=== PATIENT | male | born 1960 | race African-American/Black ===

== ENCOUNTER 2017-08-28 12:48 | Emergency (ER) | payer MEDICAID, OTHER ==
[~2017-08-28] VITALS: Ht 172.7 cm; Wt 131.0 kg
[~2017-08-28 12:48] MED LIST: AMIODARONE HCL 200 MG PO; METO25TA6 PO; NIFE60TA64 PO; OMEP20CA10 PO; WARF5TAB73 PO; WARF7.5T22 PO
[2017-08-28 14:16] LABS: BASOPHILS % 0.6 % (0.0-2.0); EOSINOPHILS % 1.9 % (0.0-5.0); HEMATOCRIT. 47.8 % (42.0-52.0); HEMOGLOBIN. 15.9 g/dL (14.0-18.0); LYMPHOCYTES % 30.7 % (20.0-50.0); MEAN CORPUSCULAR HEMOGLOBIN 29.3 pg (28.0-32.0); MEAN CORPUSCULAR VOLUME 87.9 fL (80.0-94.0); MEAN PLATELET VOLUME 8.7 fl (7.4-10.4); MONOCYTES % 8.6 % (2.0-8.0); NEUTROPHILS % 58.2 % (40.0-76.0); PLATELET 197 x1000/uL (130-400); RED BLOOD CELL COUNT 5.44 mill/uL (4.7-6.1); RED CELL DISTRIBUTION WIDTH 14.3 % (11.6-14.6)
[2017-08-28 14:25] LABS: CARBON DIOXIDE 29 mEq/L (21-32); CHLORIDE 106 mEq/L (98-107); CREATINE KINASE 339 IU/L (39-308); TROPONIN I < 0.02 ng/mL (0.00-0.04)
[2017-08-28 14:27] LABS: PARTIAL THROMBOPLASTIN TIME 26.5 sec (23.4-31.0); PROTHROMBIN TIME 10.7 sec (9.4-11.6)
[2017-08-28 14:30] LABS: CREATINE KINASE MB FRACTION 1.3 ng/mL (0.5-3.6)
[2017-08-28] MEDS ORDERED: MORPHINE SULFATE 2 MG/ML CPJ (NOT FOR IM USE) IV ONE (16:15)
[2017-08-28] MEDS: MORPHINE SULFATE 4 MG/ML CPJ (NOT FOR IM USE) IV NR ×2 (16:43→16:44)
[2017-08-28 16:49] LABS: CLARITY URINE CLEAR (CLEAR); COLOR URINE YELLOW (YELLOW); KETONES URINE TRACE (NEGATIVE); LEUKOCYTE ESTERASE URINE NEGATIVE (NEGATIVE); NITRITE URINE NEGATIVE (NEGATIVE); OCCULT BLOOD URINE NEGATIVE (NEGATIVE); PROTEIN URINE NEGATIVE (NEGATIVE); SPECIFIC GRAVITY URINE 1.022 (1.005-1.030); UROBILINOGEN URINE 0.2 E.U./dL (0.2-1.0)
[2017-08-28] MEDS ORDERED: IOHEXOL-300 100 ML BOTTLE ONE (17:15)
[2017-08-28] MEDS ORDERED: FENTANYL CITRATE/PF 50MCG/ML 2ML VIAL IV ONE (18:15)
[2017-08-28] MEDS ORDERED: ONDANSETRON HCL 4MG/2ML VIAL IV ONE (18:15)
[2017-08-28] MEDS ORDERED: MORPHINE SULFATE 4 MG/ML CPJ (NOT FOR IM USE) IV ONE (20:45)
[2017-08-28] MEDS ORDERED: METOPROLOL TARTRATE 5MG/5ML VIAL IV ONE (22:45)
[2017-08-29] MEDS ORDERED: MORPHINE SULFATE 4 MG/ML CPJ (NOT FOR IM USE) IV ONE ×2 (01:30→05:45)
[2017-08-29 05:44] VITALS: BP 124/86
[2017-08-29] MEDS ORDERED: ONDANSETRON HCL 4MG/2ML VIAL IV ONE (05:45)
== END 2017-08-29 06:10 | disposition short-term general hospital (02) ==
LOC: ER 13:01
DX: I71.01 Dissection of thoracic aorta (principal); I11.0 Hypertensive heart disease with heart failure; I50.9 Heart failure, unspecified; F12.10 Cannabis abuse, uncomplicated; Z79.01 Long term (current) use of anticoagulants; Z86.73 Personal history of transient ischemic attack (TIA), and cerebral infarction without residual deficits; Z95.828 Presence of other vascular implants and grafts
CPT/HCPCS: 36415; 71270; 74178; 80053; 81003; 82550; 82553; 83690; 84484; 85025; 85610; 85730; 93005; 96374; 96375; 96376; 99291; J2270; J2405; J3010; J3490; Q9967; Z7610

== ENCOUNTER 2025-05-05 19:22 | Inpatient (IN) | payer MEDICAID, MEDICARE ==
[2025-05-05] VITALS (10 sets, daily range): BP systolic 147–186; BP diastolic 94–153; PULSE 69–95; RESP 18–29; TEMP 37.4–37.4744; O2SAT 98–100
[~2025-05-05] VITALS: Ht 172.7 cm; Wt 81.2 kg
[~2025-05-05 19:22] MED LIST changes: -OMEP20CA10 PO; +OMEP20CA14 PO; +WARF-53 PO; -WARF5TAB73 PO
[2025-05-05] MEDS: IOHEXOL-350 100 ML BOTTLE ONE (19:36)
[2025-05-05] MEDS: PROPOFOL 10MG/ML 100ML 100 ML IV SCH (19:45)
[2025-05-05] MEDS ORDERED: FENTANYL 2500MCG/250ML PMX 250 ML IV SCH (19:45)
[2025-05-05] MEDS: ETOMIDATE 2MG/ML 10ML VIAL IV ONE (19:47)
[2025-05-05] MEDS: ROCURONIUM BROMIDE 10MG/ML VIAL 5ML IV ONE (19:47)
[2025-05-05] MEDS: LORAZEPAM 2MG/ML UD SYRINGE ONE (19:55)
[2025-05-05] MEDS: LORAZEPAM 2MG/ML UD SYRINGE IV SCH (20:00)
[2025-05-05] MEDS: LEVETIRACETAM 1000MG PREMIX 100 ML IV ONE ×3 (20:00→21:36)
[2025-05-05] MEDS: FENTANYL 2500MCG/250ML PMX 250 ML IV PRN (20:25)
[2025-05-05 20:32] LABS: BASOPHILS % 0.9 % (0.0-2.0); EOSINOPHILS % 1.2 % (0.0-5.0); HEMATOCRIT. 38.9 % (42.0-52.0); HEMOGLOBIN. 12.7 g/dL (14.0-18.0); LYMPHOCYTES % 21.8 % (20.0-50.0); MEAN PLATELET VOLUME 8.2 fl (7.4-10.4); MONOCYTES % 7.0 % (2.0-8.0); NEUTROPHILS % 69.1 % (40.0-76.0); PLATELET 190 x1000/uL (130-400); RED BLOOD CELL COUNT 4.48 mill/uL (4.7-6.1); RED CELL DISTRIBUTION WIDTH 13.4 % (11.6-14.6)
[2025-05-05 20:37] LABS: ADD RBC MORPHOLOGY YES
[2025-05-05 20:45] LABS: INR 1.1
[2025-05-05 20:48] LABS: CREATININE 1.0 mg/dL (0.6-1.3); UREA NITROGEN BLOOD 11 mg/dL (9-23)
[2025-05-05 20:49] LABS: ETHANOL BLOOD < 10 mg/dL (<10)
[2025-05-05 20:50] LABS: ASPARTATE AMINOTRANSFERASE 18 IU/L (<34); BILIRUBIN DIRECT 0.1 mg/dL (<=3.0); BILIRUBIN TOTAL 0.4 mg/dL (0.1-1.0); PLATELET ESTIMATE NORMAL
[2025-05-05 20:51] LABS: PROTEIN TOTAL 6.3 g/dL (6.0-8.3)
[2025-05-05] MEDS: SODIUM CHLORIDE 0.9% (SEPSIS BOLUS) IV ONE (20:56)
[2025-05-05] MEDS: PIPERACILLIN/TAZO 3.375G/50ML 50 ML IV ONE (21:10)
[2025-05-05] MEDS: VANCOMYCIN 1G PREMIX 200 ML IV ONE (21:37)
[2025-05-05 21:39] LABS: CLARITY URINE CLEAR (CLEAR); COLOR URINE YELLOW (YELLOW); GLUCOSE URINE NEGATIVE (NEGATIVE); KETONES URINE NEGATIVE (NEGATIVE); LEUKOCYTE ESTERASE URINE NEGATIVE (NEGATIVE); NITRITE URINE NEGATIVE (NEGATIVE); OCCULT BLOOD URINE 2+ (NEGATIVE); PH URINE 5.0 (4.5-8.0); PROTEIN URINE 3+ (NEGATIVE); SPECIFIC GRAVITY URINE 1.073 (1.005-1.030); UROBILINOGEN URINE 1.0 E.U./dL (0.2-1.0)
[2025-05-05 21:43] LABS: BG BASE EXCESS -2.4 mmol/L (-2.0-3.0); BG CARBOXYHEMOGLOBIN 0.3 % (0.5-1.5); BG DEOXYHEMOGLOBIN 0.0 % (0.0-5.0); BG FRACTION INSPIRED OXYGEN 100; BG HCO3 ACT 22.4 mmol/L (21.0-28.0); BG METHEMOGLOBIN 0.3 % (0.5-1.5); BG OXYGEN SATURATION 100.0 % (94.0-98.0); BG OXYHEMOGLOBIN 99.4 % (94.0-98.0); BG PCO2 38.9 mmHg (35.0-48.0); BG PEEP (cmH2O) 5.0 cmH2O; BG PH 7.378 (7.350-7.450); BG PO2 397.8 mmHg (83.0-108.0); BG SAMPLE SITE RIGHT BRACHIAL; BG TIDAL VOLUME(mL) 500.0 mL; BG TOTAL HEMOGLOBIN 17.1 g/dL (13.5-17.5); BG VENT MODE VENT - AC; BG VENT RATE 18.0 set
[2025-05-05 21:46] LABS: BACTERIA URINE TRACE; SQUAMOUS EPITHELIAL CELL URINE NONE SEEN /lpf (RARE/1+); WBC URINE 0-2 /hpf (0-2)
[2025-05-05 21:47] LABS: *AMPHETAMINES SCREEN URINE NEGATIVE (NEGATIVE); *BENZODIAZEPINES SCREEN URINE NEGATIVE (NEGATIVE)
[2025-05-05 21:48] LABS: *BARBITURATES SCREEN URINE NEGATIVE (NEGATIVE); *COCAINE SCREEN URINE NEGATIVE (NEGATIVE); CANNABINOID URINE SCREEN NEGATIVE (NEGATIVE); ECSTASY MDMA SCREEN URINE NEGATIVE (NEGATIVE); METHADONE URINE SCREEN NEGATIVE (NEGATIVE); OPIATES URINE SCREEN NEGATIVE (NEGATIVE); PHENCYCLIDINE URINE SCREEN NEGATIVE (NEGATIVE)
[2025-05-05] MEDS ORDERED: FENTANYL CITRATE/PF 2,500 MCG in SODIUM CHLORIDE 0.9% 200 ML IV PRN (23:00)
[2025-05-06] VITALS (85 sets, daily range): BP systolic 101–167; BP diastolic 67–120; PULSE 61–83; RESP 14–28; TEMP 36.8–37.1; O2SAT 96–100
[2025-05-06] MEDS ORDERED: GUAIFENESIN 200MG/10ML SUGAR FREE UDC PO PRN
[2025-05-06] MEDS ORDERED: ONDANSETRON HCL 4MG/2ML INJ IV PRN
[2025-05-06] MEDS ORDERED: IPRATROPIUM/ALBUTEROL 0.5-3(2.5)MG/3ML NEB HHN PRN
[2025-05-06] MEDS ORDERED: ACETAMINOPHEN 325MG TABLET NG PRN
[2025-05-06] MEDS ORDERED: DOCUSATE SODIUM 100MG CAPSULE PO PRN
[2025-05-06] MEDS: ENOXAPARIN 100MG/ML SYR SUBCUT SCH (02:24)
[2025-05-06] MEDS: PROPOFOL 10MG/ML 100ML 100 ML IV PRN (04:12)
[2025-05-06 05:07] LABS: HEMATOCRIT. 35.7 % (42.0-52.0); HEMOGLOBIN. 12.1 g/dL (14.0-18.0); MEAN PLATELET VOLUME 7.8 fl (7.4-10.4); PLATELET 192 x1000/uL (130-400); RED BLOOD CELL COUNT 4.21 mill/uL (4.7-6.1); RED CELL DISTRIBUTION WIDTH 13.3 % (11.6-14.6)
[2025-05-06 05:09] LABS: CREATININE 1.0 mg/dL (0.6-1.3)
[2025-05-06 05:10] LABS: LDL CHOLESTEROL 103 mg/dL (5-100); TRIGLYCERIDE 68 mg/dL (0-150); UREA NITROGEN BLOOD 7 mg/dL (9-23)
[2025-05-06 05:24] LABS: FOLIC ACID (FOLATE) SERUM 9.09 ng/mL (>5.38); VITAMIN B12 SERUM 530 pg/mL (211-911)
[2025-05-06 07:04] LABS: EOSINOPHILS % MANUAL 1.0 % (0.0-5.0); LYMPHOCYTES % MANUAL 23.0 % (20.0-50.0); MONOCYTES % MANUAL 16.0 % (2.0-8.0); NEUTROPHILS % MANUAL 60.0 % (45.0-75.0); PLATELET ESTIMATE NORMAL
[2025-05-06 07:11] LABS: INFLUENZA TYPE A Presumptive Negative (Pres. Neg.); INFLUENZA TYPE B Presumptive Negative (Pres. Neg.); RESPIRATORY SYNCYTIAL VIRUS Not Detected (Not Detectd)
[2025-05-06 08:11] LABS: BG BASE EXCESS -0.1 mmol/L (-2.0-3.0); BG CARBOXYHEMOGLOBIN 0.7 % (0.5-1.5); BG DEOXYHEMOGLOBIN 0.5 % (0.0-5.0); BG FRACTION INSPIRED OXYGEN 50; BG HCO3 ACT 23.8 mmol/L (21.0-28.0); BG METHEMOGLOBIN 0.1 % (0.5-1.5); BG OXYGEN SATURATION 99.5 % (94.0-98.0); BG OXYHEMOGLOBIN 98.7 % (94.0-98.0); BG PCO2 36.3 mmHg (35.0-48.0); BG PEEP (cmH2O) 5.0 cmH2O; BG PH 7.434 (7.350-7.450); BG PO2 208.1 mmHg (83.0-108.0); BG SAMPLE SITE RIGHT RADIAL; BG TIDAL VOLUME(mL) 500.0 mL; BG TOTAL HEMOGLOBIN 13.2 g/dL (13.5-17.5); BG TOTAL RESPIRATORY RATE 20 b/min; BG VENT MODE VENT - AC; BG VENT RATE 18.0 set
[2025-05-06] MEDS: IPRATROPIUM/ALBUTEROL 0.5-3(2.5)MG/3ML NEB HHN SCH ×2 (08:15→14:52)
[2025-05-06] MEDS ORDERED: LEVETIRACETAM 1,500MG in NACL 100ML PREMIX IV SCH (09:00)
[2025-05-06] MEDS ORDERED: ENOXAPARIN 30MG/0.3ML SYR SUBCUT SCH (09:00)
[2025-05-06] MEDS: KCL 20MEQ/100ML PREMIX 100 ML IV SCH (09:08)
[2025-05-06] MEDS: PANTOPRAZOLE SODIUM 40 MG/VIAL IV SCH (09:09)
[2025-05-06] MEDS: LEVETIRACETAM 1500MG PREMIX 100 ML IV SCH (09:16)
[2025-05-06] MEDS ORDERED: DEXTROSE 50% WATER 50ML SYRINGE IV PRN (09:45)
[2025-05-06] MEDS: DEXT 5%/0.9% NACL 1,000 ML IV SCH (10:29)
[2025-05-06] MEDS: PIPERACILLIN/TAZO 3.375G/50ML 50 ML IV SCH (10:29)
[2025-05-06] MEDS: MIDAZOLAM 100MG/100ML PMX 100 ML IV PRN (10:34)
[2025-05-06] MEDS: ASPIRIN 81MG EC TABLET PO SCH (12:42)
[2025-05-07] VITALS (86 sets, daily range): BP systolic 101–160; BP diastolic 60–99; PULSE 56–86; RESP 16–27; TEMP 36.8–37.9; O2SAT 96–100
[2025-05-07 01:10] LABS: TROPONIN I HIGH SENSITIVITY 219 ng/L (3.0-53)
[2025-05-07] MEDS: PROPOFOL 10MG/ML 100ML 100 ML IV PRN (02:58)
[2025-05-07 05:29] LABS: CREATININE 0.9 mg/dL (0.6-1.3)
[2025-05-07 05:30] LABS: UREA NITROGEN BLOOD < 5 mg/dL (9-23)
[2025-05-07 05:37] LABS: HEMATOCRIT. 35.9 % (42.0-52.0); HEMOGLOBIN. 11.9 g/dL (14.0-18.0); MEAN PLATELET VOLUME 8.2 fl (7.4-10.4); PLATELET 178 x1000/uL (130-400); RED BLOOD CELL COUNT 4.14 mill/uL (4.7-6.1); RED CELL DISTRIBUTION WIDTH 13.5 % (11.6-14.6); TROPONIN I HIGH SENSITIVITY 196 ng/L (3.0-53)
[2025-05-07] MEDS: DEXTROSE 50% WATER 50ML SYRINGE IV PRN (06:31)
[2025-05-07 08:31] LABS: BG BASE EXCESS -3.9 mmol/L (-2.0-3.0); BG CARBOXYHEMOGLOBIN 0.7 % (0.5-1.5); BG DEOXYHEMOGLOBIN 1.4 % (0.0-5.0); BG FRACTION INSPIRED OXYGEN 40; BG HCO3 ACT 20.1 mmol/L (21.0-28.0); BG METHEMOGLOBIN 0.1 % (0.5-1.5); BG OXYGEN SATURATION 98.6 % (94.0-98.0); BG OXYHEMOGLOBIN 97.8 % (94.0-98.0); BG PCO2 33.1 mmHg (35.0-48.0); BG PEEP (cmH2O) 5.0 cmH2O; BG PH 7.401 (7.350-7.450); BG PO2 126.0 mmHg (83.0-108.0); BG SAMPLE SITE RIGHT RADIAL; BG TIDAL VOLUME(mL) 500.0 mL; BG TOTAL HEMOGLOBIN 12.7 g/dL (13.5-17.5); BG VENT MODE VENT - AC; BG VENT RATE 18.0 set
[2025-05-07 10:46] LABS: BAND% 8.0 % (1.0-6.0); EOSINOPHILS % MANUAL 2.0 % (0.0-5.0); LYMPHOCYTES % MANUAL 20.0 % (20.0-50.0); MONOCYTES % MANUAL 17.0 % (2.0-8.0); NEUTROPHILS % MANUAL 53.0 % (45.0-75.0); PLATELET ESTIMATE NORMAL
[2025-05-07] MEDS: LORAZEPAM 2MG/ML UD SYRINGE IV PRN (10:50)
[2025-05-07] MEDS: LEVETIRACETAM 1000MG PREMIX 100 ML IV SCH ×2 (20:55)
[2025-05-07] MEDS ORDERED: LEVETIRACETAM 1,500MG in NACL 100ML PREMIX IV SCH (21:00)
[2025-05-07] MEDS ORDERED: DEXTROSE 50% WATER 50ML SYRINGE IV PRN (21:45)
[2025-05-07] MEDS: INSULIN LISPRO 100 UNITS/ML SUBCUT SCH (22:00)
[2025-05-07] MEDS: BLOOD SUGAR DIAGNOSTIC STRIP TEST SCH (22:00)
[2025-05-07] MEDS: AMLODIPINE 5MG TABLET PO NR (22:09)
[2025-05-07] MEDS: ACETAMINOPHEN 325MG TABLET NG PRN (22:39)
[2025-05-08] VITALS (91 sets, daily range): BP systolic 95–163; BP diastolic 48–107; PULSE 55–88; RESP 10–30; TEMP 36.9–38.6; O2SAT 97–100
[2025-05-08 05:48] LABS: PLATELET 207 x1000/uL (130-400); RED BLOOD CELL COUNT 4.53 mill/uL (4.7-6.1); RED CELL DISTRIBUTION WIDTH 13.3 % (11.6-14.6)
[2025-05-08] MEDS: FENTANYL 2500MCG/250ML PMX 250 ML IV PRN (05:55)
[2025-05-08 06:11] LABS: CREATININE 0.8 mg/dL (0.6-1.3)
[2025-05-08 06:12] LABS: UREA NITROGEN BLOOD 6 mg/dL (9-23)
[2025-05-08 06:14] LABS: PHOSPHORUS 3.0 mg/dL (2.5-4.9)
[2025-05-08 09:00] LABS: BG BASE EXCESS -1.6 mmol/L (-2.0-3.0); BG CARBOXYHEMOGLOBIN 0.2 % (0.5-1.5); BG DEOXYHEMOGLOBIN 3.4 % (0.0-5.0); BG FRACTION INSPIRED OXYGEN 30; BG HCO3 ACT 21.7 mmol/L (21.0-28.0); BG METHEMOGLOBIN 0.3 % (0.5-1.5); BG OXYGEN SATURATION 96.6 % (94.0-98.0); BG OXYHEMOGLOBIN 96.1 % (94.0-98.0); BG PCO2 32.2 mmHg (35.0-48.0); BG PEEP (cmH2O) 5.0 cmH2O; BG PH 7.446 (7.350-7.450); BG PO2 83.5 mmHg (83.0-108.0); BG SAMPLE SITE RIGHT RADIAL; BG TIDAL VOLUME(mL) 500.0 mL; BG TOTAL HEMOGLOBIN 12.2 g/dL (13.5-17.5); BG VENT MODE VENT - AC; BG VENT RATE 18.0 set
[2025-05-08] MEDS: AMLODIPINE 5MG TABLET PO SCH (09:36)
[2025-05-08] MEDS: PROPOFOL 10MG/ML 100ML 100 ML IV PRN (14:36)
[2025-05-09] VITALS (97 sets, daily range): BP systolic 93–182; BP diastolic 54–101; PULSE 64–102; RESP 14–39; TEMP 37.5–38.7; O2SAT 93–100
[2025-05-09] MEDS: MAGNESIUM/ALUMINUM HYDROXIDE/SIMETHICONE 30ML UDC PO PRN (02:54)
[2025-05-09] MEDS: HYDRALAZINE 20MG/ML VIAL IV PRN (06:04)
[2025-05-09 06:42] LABS: BASOPHILS % 0.3 % (0.0-2.0); EOSINOPHILS % 1.0 % (0.0-5.0); HEMATOCRIT. 35.4 % (42.0-52.0); HEMOGLOBIN. 12.0 g/dL (14.0-18.0); LYMPHOCYTES % 15.3 % (20.0-50.0); MEAN PLATELET VOLUME 8.2 fl (7.4-10.4); MONOCYTES % 6.8 % (2.0-8.0); NEUTROPHILS % 76.6 % (40.0-76.0); PLATELET 227 x1000/uL (130-400); RED BLOOD CELL COUNT 4.17 mill/uL (4.7-6.1); RED CELL DISTRIBUTION WIDTH 13.2 % (11.6-14.6)
[2025-05-09 06:56] LABS: CREATININE 0.7 mg/dL (0.6-1.3); UREA NITROGEN BLOOD < 5 mg/dL (9-23)
[2025-05-09 09:33] LABS: BG BASE EXCESS -4.3 mmol/L (-2.0-3.0); BG CARBOXYHEMOGLOBIN 0.1 % (0.5-1.5); BG DEOXYHEMOGLOBIN 1.6 % (0.0-5.0); BG FRACTION INSPIRED OXYGEN 30; BG HCO3 ACT 18.2 mmol/L (21.0-28.0); BG METHEMOGLOBIN 0.3 % (0.5-1.5); BG OXYGEN SATURATION 98.4 % (94.0-98.0); BG OXYHEMOGLOBIN 98.0 % (94.0-98.0); BG PCO2 26.2 mmHg (35.0-48.0); BG PEEP (cmH2O) 5.0 cmH2O; BG PH 7.459 (7.350-7.450); BG PO2 116.3 mmHg (83.0-108.0); BG SAMPLE SITE RIGHT RADIAL; BG TIDAL VOLUME(mL) 500.0 mL; BG TOTAL HEMOGLOBIN 11.9 g/dL (13.5-17.5); BG VENT MODE VENT - AC; BG VENT RATE 18.0 set
[2025-05-10] VITALS (105 sets, daily range): BP systolic 102–169; BP diastolic 59–124; PULSE 69–103; RESP 15–33; TEMP 37–38.1; O2SAT 78–100
[2025-05-10 07:17] LABS: BASOPHILS % 0.5 % (0.0-2.0); EOSINOPHILS % 1.3 % (0.0-5.0); HEMATOCRIT. 37.2 % (42.0-52.0); HEMOGLOBIN. 12.1 g/dL (14.0-18.0); LYMPHOCYTES % 17.6 % (20.0-50.0); MONOCYTES % 8.4 % (2.0-8.0); NEUTROPHILS % 72.2 % (40.0-76.0); RED BLOOD CELL COUNT 4.23 mill/uL (4.7-6.1); RED CELL DISTRIBUTION WIDTH 13.5 % (11.6-14.6)
[2025-05-10 07:33] LABS: CREATININE 0.7 mg/dL (0.6-1.3); UREA NITROGEN BLOOD 5 mg/dL (9-23)
[2025-05-10] MEDS: POLYETHYLENE GLYCOL 3350 (17GM) 1 DOSE PACK PO SCH (08:13)
[2025-05-10 09:01] LABS: BG BASE EXCESS 0.9 mmol/L (-2.0-3.0); BG CARBOXYHEMOGLOBIN 0.7 % (0.5-1.5); BG DEOXYHEMOGLOBIN 2.7 % (0.0-5.0); BG FRACTION INSPIRED OXYGEN 30; BG HCO3 ACT 24.9 mmol/L (21.0-28.0); BG METHEMOGLOBIN 0.1 % (0.5-1.5); BG OXYGEN SATURATION 97.3 % (94.0-98.0); BG OXYHEMOGLOBIN 96.5 % (94.0-98.0); BG PCO2 37.6 mmHg (35.0-48.0); BG PEEP (cmH2O) 5.0 cmH2O; BG PH 7.439 (7.350-7.450); BG PO2 93.5 mmHg (83.0-108.0); BG SAMPLE SITE RIGHT RADIAL; BG TIDAL VOLUME(mL) 500.0 mL; BG TOTAL HEMOGLOBIN 12.9 g/dL (13.5-17.5); BG VENT MODE VENT - AC; BG VENT RATE 16.0 set
[2025-05-10 10:18] LABS: PLATELET 214 x1000/uL (130-400)
[2025-05-10] MEDS ORDERED: SODIUM CHLORIDE 0.9% 1,000 ML IV SCH (14:00)
[2025-05-10] MEDS: SODIUM CHLORIDE 0.45% 1,000 ML IV ONE (14:48)
[2025-05-10] MEDS ORDERED: HYDRALAZINE 20MG/ML VIAL IV PRN (19:15)
[2025-05-11] VITALS (90 sets, daily range): BP systolic 105–178; BP diastolic 60–147; PULSE 69–102; RESP 10–44; TEMP 37.7–38.7; O2SAT 92–100
[2025-05-11 06:36] LABS: CREATININE 0.6 mg/dL (0.6-1.3); UREA NITROGEN BLOOD 6 mg/dL (9-23)
[2025-05-11 06:52] LABS: BASOPHILS % 0.6 % (0.0-2.0); EOSINOPHILS % 1.8 % (0.0-5.0); HEMATOCRIT. 35.4 % (42.0-52.0); HEMOGLOBIN. 11.7 g/dL (14.0-18.0); LYMPHOCYTES % 20.2 % (20.0-50.0); MEAN PLATELET VOLUME 8.3 fl (7.4-10.4); MONOCYTES % 9.1 % (2.0-8.0); NEUTROPHILS % 68.3 % (40.0-76.0); PLATELET 217 x1000/uL (130-400); RED BLOOD CELL COUNT 4.05 mill/uL (4.7-6.1); RED CELL DISTRIBUTION WIDTH 13.2 % (11.6-14.6)
[2025-05-11] MEDS: NA PHOS,M-B/NA PHOS,DI-BA ENEMA 118ML PR NR (08:18)
[2025-05-11] MEDS: AMLODIPINE 5MG TABLET PO SCH (08:19)
[2025-05-11] MEDS: FUROSEMIDE 40MG/4ML VIAL IVP NR (09:35)
[2025-05-11 10:07] LABS: BG BASE EXCESS 2.8 mmol/L (-2.0-3.0); BG CARBOXYHEMOGLOBIN 0.2 % (0.5-1.5); BG DEOXYHEMOGLOBIN 2.5 % (0.0-5.0); BG FRACTION INSPIRED OXYGEN 30; BG HCO3 ACT 26.4 mmol/L (21.0-28.0); BG METHEMOGLOBIN 0.3 % (0.5-1.5); BG OXYGEN SATURATION 97.5 % (94.0-98.0); BG OXYHEMOGLOBIN 97.0 % (94.0-98.0); BG PCO2 37.0 mmHg (35.0-48.0); BG PEEP (cmH2O) 5.0 cmH2O; BG PH 7.471 (7.350-7.450); BG PO2 90.0 mmHg (83.0-108.0); BG SAMPLE SITE RIGHT RADIAL; BG TOTAL HEMOGLOBIN 11.5 g/dL (13.5-17.5); BG VENT MODE VENT - CPAP
[2025-05-11] MEDS: LEVOFLOXACIN 750MG PREMIX 150 ML IV SCH (11:57)
[2025-05-11] MEDS: IPRATROPIUM/ALBUTEROL 0.5-3(2.5)MG/3ML NEB HHN SCH (11:57)
[2025-05-11] MEDS ORDERED: HALOPERIDOL LACTATE 5MG/ML VIAL IM PRN (12:45)
[2025-05-11] MEDS ORDERED: CEFEPIME 1,000 MG in DEXT 5% WATER 100 ML IV SCH (14:00)
[2025-05-11 15:27] LABS: BG BASE EXCESS 2.2 mmol/L (-2.0-3.0); BG CARBOXYHEMOGLOBIN 0.5 % (0.5-1.5); BG DEOXYHEMOGLOBIN 3.4 % (0.0-5.0); BG FRACTION INSPIRED OXYGEN 30; BG HCO3 ACT 24.3 mmol/L (21.0-28.0); BG METHEMOGLOBIN 0.3 % (0.5-1.5); BG OXYGEN SATURATION 96.6 % (94.0-98.0); BG OXYHEMOGLOBIN 95.8 % (94.0-98.0); BG PCO2 30.7 mmHg (35.0-48.0); BG PEEP (cmH2O) 5.0 cmH2O; BG PH 7.517 (7.350-7.450); BG PO2 79.8 mmHg (83.0-108.0); BG SAMPLE SITE RIGHT RADIAL; BG TOTAL HEMOGLOBIN 13.6 g/dL (13.5-17.5); BG VENT MODE VENT - CPAP
[2025-05-11] MEDS: RACEPINEPHRINE 2.25% 0.5ML NEB VIAL HHN SCH (15:57)
[2025-05-11] MEDS: CEFEPIME 2GM/100ML 100 ML IV SCH (15:58)
[2025-05-11] MEDS: BISACODYL 10MG SUPP PR SCH (15:59)
[2025-05-11] MEDS: POLYETHYLENE GLYCOL 3350 (17GM) 1 DOSE PACK PO SCH (15:59)
[2025-05-11] MEDS ORDERED: METRONIDAZOLE 500MG TABLET PO SCH (18:00)
[2025-05-11 18:31] LABS: CLARITY URINE CLEAR (CLEAR); COLOR URINE YELLOW (YELLOW); GLUCOSE URINE NEGATIVE (NEGATIVE); KETONES URINE NEGATIVE (NEGATIVE); LEUKOCYTE ESTERASE URINE NEGATIVE (NEGATIVE); NITRITE URINE NEGATIVE (NEGATIVE); OCCULT BLOOD URINE 3+ (NEGATIVE); PH URINE 6.5 (4.5-8.0); PROTEIN URINE 3+ (NEGATIVE); SPECIFIC GRAVITY URINE 1.017 (1.005-1.030); UROBILINOGEN URINE 1.0 E.U./dL (0.2-1.0)
[2025-05-11] MEDS: METRONIDAZOLE 500 MG PREMIX 100 ML IV SCH (18:33)
[2025-05-11] MEDS: ACETAMINOPHEN 650MG SUPP PR SCH (18:34)
[2025-05-11 18:52] LABS: BACTERIA URINE NONE SEEN; HYALINE CASTS URINE 0-5 /lpf; SQUAMOUS EPITHELIAL CELL URINE RARE /lpf (RARE/1+); WBC URINE 0-2 /hpf (0-2)
[2025-05-11] MEDS: CLONIDINE HCL 0.1MG/24HR PATCH TD SCH (19:45)
[2025-05-11 21:06] LABS: TROPONIN I HIGH SENSITIVITY 47 ng/L (3.0-53)
[2025-05-12] VITALS (58 sets, daily range): BP systolic 108–162; BP diastolic 53–137; PULSE 70–92; RESP 14–42; TEMP 37.2–37.4; O2SAT 86–99
[2025-05-12 06:04] LABS: BASOPHILS % 0.9 % (0.0-2.0); EOSINOPHILS % 1.4 % (0.0-5.0); HEMATOCRIT. 33.0 % (42.0-52.0); HEMOGLOBIN. 11.1 g/dL (14.0-18.0); LYMPHOCYTES % 19.3 % (20.0-50.0); MONOCYTES % 7.8 % (2.0-8.0); NEUTROPHILS % 70.6 % (40.0-76.0); RED BLOOD CELL COUNT 3.83 mill/uL (4.7-6.1); RED CELL DISTRIBUTION WIDTH 12.9 % (11.6-14.6)
[2025-05-12 06:31] LABS: CREATININE 0.6 mg/dL (0.6-1.3); UREA NITROGEN BLOOD 7 mg/dL (9-23)
[2025-05-12 06:33] LABS: ASPARTATE AMINOTRANSFERASE 25 IU/L (<34); BILIRUBIN DIRECT 0.3 mg/dL (<=3.0)
[2025-05-12 06:34] LABS: BILIRUBIN TOTAL 0.6 mg/dL (0.1-1.0); PROTEIN TOTAL 5.9 g/dL (6.0-8.3)
[2025-05-12] MEDS: ENOXAPARIN 80MG/0.8ML SYR SUBCUT SCH (08:24)
[2025-05-12] MEDS: DEXT 5%/0.9% NACL 250 ML IV ONE (08:36)
[2025-05-12 08:59] LABS: PLATELET 218 x1000/uL (130-400)
[2025-05-12] MEDS: POTASSIUM CHLORIDE 20MEQ/PACKET PO NR (13:55)
[2025-05-13] VITALS (45 sets, daily range): BP systolic 95–161; BP diastolic 48–126; PULSE 75–137; RESP 9–41; TEMP 36.7–37.1; O2SAT 87–98
[2025-05-13 07:23] LABS: BASOPHILS % 0.6 % (0.0-2.0); EOSINOPHILS % 2.3 % (0.0-5.0); HEMATOCRIT. 37.3 % (42.0-52.0); HEMOGLOBIN. 12.5 g/dL (14.0-18.0); LYMPHOCYTES % 21.6 % (20.0-50.0); MEAN PLATELET VOLUME 8.1 fl (7.4-10.4); MONOCYTES % 11.7 % (2.0-8.0); NEUTROPHILS % 63.8 % (40.0-76.0); PLATELET 245 x1000/uL (130-400); RED BLOOD CELL COUNT 4.36 mill/uL (4.7-6.1); RED CELL DISTRIBUTION WIDTH 13.3 % (11.6-14.6)
[2025-05-13 08:12] LABS: CREATININE 0.7 mg/dL (0.6-1.3); UREA NITROGEN BLOOD 7 mg/dL (9-23)
[2025-05-13] MEDS: KCL 20MEQ/100ML PREMIX 100 ML IV SCH (08:30)
[2025-05-13] MEDS ORDERED: POTASSIUM CHLORIDE 20 MEQ in DEXT 5% WATER 90 ML IV ONE (08:30)
[2025-05-13] MEDS: LEVETIRACETAM 500MG/5ML CUP PO SCH (09:35)
[2025-05-13] MEDS: POTASSIUM CHLORIDE 20MEQ TABLET SR PO SCH (09:36)
[2025-05-13] MEDS: INSULIN LISPRO 100 UNITS/ML SUBCUT SCH (12:19)
[2025-05-13] MEDS: BLOOD SUGAR DIAGNOSTIC STRIP TEST SCH (12:19)
[2025-05-13 16:41] LABS: PHOSPHORUS 2.4 mg/dL (2.5-4.9)
[2025-05-13] MEDS: AMLODIPINE 5MG TABLET PO SCH (21:21)
[2025-05-13] MEDS: METOPROLOL TARTRATE 5MG/5ML VIAL IV NR ×2 (23:19→23:43)
[2025-05-14] VITALS (46 sets, daily range): BP systolic 96–136; BP diastolic 48–115; PULSE 70–132; RESP 10–34; TEMP 36.7–37.2; O2SAT 93–99
[2025-05-14] MEDS: AMIODARONE 150MG/100ML D5W 100 ML IV NR ×2 (00:19→05:06)
[2025-05-14] MEDS: AMIODARONE HCL 900 MG in DEXT 5% WATER 482 ML IV SCH (00:44)
[2025-05-14 05:50] LABS: PLATELET 269 x1000/uL (130-400); RED BLOOD CELL COUNT 4.08 mill/uL (4.7-6.1); RED CELL DISTRIBUTION WIDTH 13.1 % (11.6-14.6)
[2025-05-14 06:12] LABS: CREATININE 0.7 mg/dL (0.6-1.3)
[2025-05-14 06:13] LABS: UREA NITROGEN BLOOD 10 mg/dL (9-23)
[2025-05-14] MEDS ORDERED: ASPI-1406 PO ×2 (16:11→16:42)
[2025-05-14] MEDS ORDERED: AMLO5TAB88 PO (16:11)
[2025-05-14] MEDS ORDERED: AMI2 PO (16:11)
[2025-05-14] MEDS ORDERED: LEVE1000 MT ×2 (16:33→16:40)
[2025-05-14] MEDS ORDERED: ATOR40TA70 MT (16:33)
[2025-05-14] MEDS ORDERED: AMIODARONE 200MG TABLET PO SCH (21:00)
== END 2025-05-14 18:38 | DRG 100 ==
LOC: ER 19:22 → CVICU 21:05 → EDBEDREQ 21:18 → EDBEDREQTM 21:18 → ENRESERV 22:27
PROVIDERS: ADMIT Hospitalist; ATTEND Hospitalist
PROC: 0BH17EZ Insertion of Endotracheal Airway into Trachea, Via Natural or Artificial Opening (ICD-10-PCS; principal; 2025-05-05)
PROC: 5A1955Z Respiratory Ventilation, Greater than 96 Consecutive Hours (ICD-10-PCS; 2025-05-05)
PROC: 4A00X4Z Measurement of Central Nervous Electrical Activity, External Approach (ICD-10-PCS; 2025-05-09)
DX: G40.901 Epilepsy, unspecified, not intractable, with status epilepticus (principal); J96.01 Acute respiratory failure with hypoxia; E87.20 Acidosis, unspecified; I16.1 Hypertensive emergency; G72.81 Critical illness myopathy; E72.20 Disorder of urea cycle metabolism, unspecified; M62.82 Rhabdomyolysis; I47.20 Ventricular tachycardia, unspecified; I69.354 Hemiplegia and hemiparesis following cerebral infarction affecting left non-dominant side; I67.4 Hypertensive encephalopathy; E11.40 Type 2 diabetes mellitus with diabetic neuropathy, unspecified; I11.0 Hypertensive heart disease with heart failure; I48.0 Paroxysmal atrial fibrillation; R53.81 Other malaise; E87.6 Hypokalemia; E83.51 Hypocalcemia; I50.9 Heart failure, unspecified; D63.8 Anemia in other chronic diseases classified elsewhere; G83.84 Todd's paralysis (postepileptic); K59.00 Constipation, unspecified; I68.0 Cerebral amyloid angiopathy; Z86.79 Personal history of other diseases of the circulatory system; Z87.891 Personal history of nicotine dependence; Z79.01 Long term (current) use of anticoagulants; Z79.899 Other long term (current) drug therapy
CPT/HCPCS: 31500; 31720; 36415; 36600; 70496; 70498; 70551; 71045; 74018; 80048; 80061; 80076; 80305; 80320; 81003; 82140; 82375; 82550; 82607; 82728; 82746; 82805; 82962; 83036; 83540; 83550; 83605; 83735; 83880; 84100; 84132; 84145; 84443; 84478; 84484; 85025; 85027; 85651; 87070; 87420; 87426; 87804; 93005; 93306; 93970; 94002; 94003; 94070; 94640; 94664; 95816; 97162; 98960; 99285; A4606; J0282; J0360; J0692; J1650; J1938; J1953; J1956; J2060; J2250; J2470; J2543; J2704; J3010; J3373; J3480; J3490; J7030; J7042; J7060; Q9967; G0480

== ENCOUNTER 2025-05-14 18:46 | Inpatient (IN) | payer MEDICARE ==
[~2025-05-14] VITALS: Ht 172.7 cm; Wt 96.6 kg
[2025-05-14 18:30] VITALS: BP 142/87; PULSE 75; RESP 18; TEMP 36.8
[~2025-05-14 18:46] MED LIST changes: +AMI2 PO; +AMLO5TAB88 PO; +ASPI-1406 PO; +ATOR40TA70 MT; +LEVE1000 MT
[2025-05-14] MEDS ORDERED: GUAIFENESIN 200MG/10ML SUGAR FREE UDC PO PRN (19:15)
[2025-05-14] MEDS ORDERED: MAGNESIUM/ALUMINUM HYDROXIDE/SIMETHICONE 30ML UDC PO PRN ×2 (19:15→20:00)
[2025-05-14] MEDS ORDERED: ONDANSETRON HCL 4MG/2ML INJ IV PRN (19:15)
[2025-05-14] MEDS ORDERED: DOCUSATE SODIUM 100MG CAPSULE PO PRN (19:15)
[2025-05-14] MEDS: AMIODARONE 200MG TABLET PO SCH (21:47)
[2025-05-14] MEDS: ENOXAPARIN 100MG/ML SYR SUBCUT SCH (21:47)
[2025-05-14] MEDS: AMLODIPINE 5MG TABLET PO SCH (21:47)
[2025-05-14] MEDS: LEVETIRACETAM 500MG TABLET PO SCH (21:47)
[2025-05-14] MEDS: ATORVASTATIN CALCIUM 40MG TABLET PO SCH (21:47)
[2025-05-14 22:19] VITALS: BP 142/87; PULSE 75; RESP 18; TEMP 36.8072
[2025-05-15 08:00] VITALS: BP 122/72; PULSE 88; RESP 18; TEMP 36.5
[2025-05-15 08:08] LABS: BASOPHILS % 1.0 % (0.0-2.0); EOSINOPHILS % 3.4 % (0.0-5.0); HEMATOCRIT. 34.1 % (42.0-52.0); HEMOGLOBIN. 11.6 g/dL (14.0-18.0); LYMPHOCYTES % 28.4 % (20.0-50.0); MEAN PLATELET VOLUME 8.1 fl (7.4-10.4); MONOCYTES % 11.2 % (2.0-8.0); NEUTROPHILS % 56.0 % (40.0-76.0); PLATELET 259 x1000/uL (130-400); RED BLOOD CELL COUNT 4.02 mill/uL (4.7-6.1); RED CELL DISTRIBUTION WIDTH 13.3 % (11.6-14.6)
[2025-05-15 08:24] LABS: CREATININE 0.7 mg/dL (0.6-1.3); UREA NITROGEN BLOOD 11 mg/dL (9-23)
[2025-05-15 08:26] LABS: ASPARTATE AMINOTRANSFERASE 43 IU/L (<34); BILIRUBIN TOTAL 0.3 mg/dL (0.1-1.0); PROTEIN TOTAL 5.7 g/dL (6.0-8.3)
[2025-05-15] MEDS: POTASSIUM CHLORIDE 20MEQ TABLET SR PO SCH (09:00)
[2025-05-15] MEDS: PANTOPRAZOLE SODIUM 40 MG/VIAL IV SCH (09:26)
[2025-05-15] MEDS: ASPIRIN 81MG EC TABLET PO SCH (09:26)
[2025-05-15 12:00] VITALS: BP 114/69; PULSE 73; RESP 18; TEMP 36.5
[2025-05-15 16:00] VITALS: BP 126/80; PULSE 81; RESP 18; TEMP 36.6
[2025-05-15 20:00] VITALS: BP 101/70; PULSE 75; RESP 18; TEMP 36.6
[2025-05-16 07:03] LABS: BASOPHILS % 0.8 % (0.0-2.0); EOSINOPHILS % 3.1 % (0.0-5.0); HEMATOCRIT. 34.1 % (42.0-52.0); HEMOGLOBIN. 11.3 g/dL (14.0-18.0); LYMPHOCYTES % 32.3 % (20.0-50.0); MEAN PLATELET VOLUME 8.1 fl (7.4-10.4); MONOCYTES % 9.4 % (2.0-8.0); NEUTROPHILS % 54.4 % (40.0-76.0); PLATELET 276 x1000/uL (130-400); RED BLOOD CELL COUNT 3.98 mill/uL (4.7-6.1); RED CELL DISTRIBUTION WIDTH 13.3 % (11.6-14.6)
[2025-05-16 07:17] LABS: CREATININE 0.8 mg/dL (0.6-1.3); PROTEIN TOTAL 6.0 g/dL (6.0-8.3); UREA NITROGEN BLOOD 9 mg/dL (9-23)
[2025-05-16 07:19] LABS: ASPARTATE AMINOTRANSFERASE 43 IU/L (<34); BILIRUBIN TOTAL 0.3 mg/dL (0.1-1.0)
[2025-05-16 07:55] LABS: FOLIC ACID (FOLATE) SERUM 7.50 ng/mL (>5.38)
[2025-05-16 07:59] LABS: VITAMIN B12 SERUM 411 pg/mL (211-911)
[2025-05-16 08:00] VITALS: BP 140/75; PULSE 72; RESP 18; TEMP 37
[2025-05-16] MEDS ORDERED: AMIODARONE 200MG TABLET PO SCH (10:00)
[2025-05-16 11:12] LABS: CLARITY URINE CLEAR (CLEAR); COLOR URINE YELLOW (YELLOW); GLUCOSE URINE NEGATIVE (NEGATIVE); KETONES URINE NEGATIVE (NEGATIVE); LEUKOCYTE ESTERASE URINE NEGATIVE (NEGATIVE); NITRITE URINE NEGATIVE (NEGATIVE); OCCULT BLOOD URINE 1+ (NEGATIVE); PH URINE 7.5 (4.5-8.0); PROTEIN URINE 3+ (NEGATIVE); SPECIFIC GRAVITY URINE 1.011 (1.005-1.030); UROBILINOGEN URINE 1.0 E.U./dL (0.2-1.0)
[2025-05-16 11:58] LABS: BACTERIA URINE TRACE; SQUAMOUS EPITHELIAL CELL URINE RARE /lpf (RARE/1+); WBC URINE 0-2 /hpf (0-2); YEAST URINE NONE SEEN
[2025-05-16 20:00] VITALS: BP 133/77; PULSE 72; RESP 18; TEMP 36.6
[2025-05-16] MEDS: AMIODARONE 200MG TABLET PO SCH (21:19)
[2025-05-16] MEDS: APIXABAN 5 MG TABLET PO SCH (21:20)
[2025-05-17 07:30] LABS: BASOPHILS % 0.8 % (0.0-2.0); EOSINOPHILS % 3.3 % (0.0-5.0); HEMATOCRIT. 36.3 % (42.0-52.0); HEMOGLOBIN. 12.0 g/dL (14.0-18.0); LYMPHOCYTES % 29.8 % (20.0-50.0); MEAN PLATELET VOLUME 8.0 fl (7.4-10.4); MONOCYTES % 8.3 % (2.0-8.0); NEUTROPHILS % 57.8 % (40.0-76.0); PLATELET 306 x1000/uL (130-400); RED BLOOD CELL COUNT 4.24 mill/uL (4.7-6.1); RED CELL DISTRIBUTION WIDTH 13.2 % (11.6-14.6)
[2025-05-17 07:52] LABS: CREATININE 0.8 mg/dL (0.6-1.3)
[2025-05-17 07:54] LABS: UREA NITROGEN BLOOD 8 mg/dL (9-23)
[2025-05-17 07:56] LABS: PHOSPHORUS 2.7 mg/dL (2.5-4.9)
[2025-05-17 08:00] VITALS: BP 135/76; PULSE 68; RESP 18; TEMP 36.4
[2025-05-17] MEDS: FERROUS SULFATE 325MG TABLET PO SCH (08:35)
[2025-05-17] MEDS: POLYETHYLENE GLYCOL 3350 (17GM) 1 DOSE PACK PO SCH (08:35)
[2025-05-17] MEDS: ASCORBIC ACID 500 MG TABLET PO SCH (08:35)
[2025-05-17] MEDS: ERGOCALCIFEROL 50000UNITS CAPSULE PO SCH (12:54)
[2025-05-17 20:00] VITALS: BP 114/75; PULSE 78; RESP 20; TEMP 36.4; O2SAT 98
[2025-05-18 08:00] VITALS: BP 142/80; PULSE 70; RESP 20; TEMP 36.1
[2025-05-18] MEDS: PANTOPRAZOLE 40MG DR TABLET PO SCH (09:09)
[2025-05-18] MEDS ORDERED: IPRATROPIUM/ALBUTEROL 0.5-3(2.5)MG/3ML NEB HHN PRN (10:30)
[2025-05-18 20:00] VITALS: BP 110/79; PULSE 68; RESP 18; TEMP 36.7; O2SAT 99
[2025-05-19 08:10] VITALS: BP 101/91; PULSE 65; RESP 18; TEMP 36.6; O2SAT 100
[2025-05-19] MEDS: ACETAMINOPHEN 650MG/20.3ML UDC PO PRN (13:20)
[2025-05-19 20:00] VITALS: BP 91/50; PULSE 70; RESP 20; TEMP 36.6; O2SAT 100
[2025-05-19] MEDS: FAMOTIDINE 20MG TABLET PO SCH (21:26)
[2025-05-20 07:02] LABS: INR 1.1
[2025-05-20 08:00] VITALS: BP 96/73; PULSE 73; RESP 17; TEMP 36.6; O2SAT 98
[2025-05-20 19:38] VITALS: BP 100/55; PULSE 69; RESP 17; TEMP 36.4; O2SAT 98
[2025-05-21 08:00] VITALS: BP 112/70; PULSE 66; RESP 18; TEMP 36.5; O2SAT 97
[2025-05-21 11:35] LABS: CREATININE 1.0 mg/dL (0.6-1.3); UREA NITROGEN BLOOD 12 mg/dL (9-23)
[2025-05-21 20:00] VITALS: BP 107/67; PULSE 71; RESP 18; TEMP 36.6; O2SAT 96
[2025-05-22 08:00] VITALS: BP 124/86; PULSE 66; RESP 18; TEMP 36.5; O2SAT 98
[2025-05-22 09:56] LABS: BASOPHILS % 1.0 % (0.0-2.0); EOSINOPHILS % 3.6 % (0.0-5.0); HEMATOCRIT. 37.9 % (42.0-52.0); HEMOGLOBIN. 12.5 g/dL (14.0-18.0); LYMPHOCYTES % 27.6 % (20.0-50.0); MEAN PLATELET VOLUME 7.2 fl (7.4-10.4); MONOCYTES % 8.2 % (2.0-8.0); NEUTROPHILS % 59.6 % (40.0-76.0); PLATELET 364 x1000/uL (130-400); RED BLOOD CELL COUNT 4.37 mill/uL (4.7-6.1); RED CELL DISTRIBUTION WIDTH 13.9 % (11.6-14.6)
[2025-05-22 20:00] VITALS: BP 113/74; PULSE 70; RESP 18; TEMP 36.7; O2SAT 97
[2025-05-23 08:00] VITALS: BP 110/68; PULSE 73; RESP 18; TEMP 36.6; O2SAT 98
[2025-05-23] MEDS ORDERED: FURO20TA4 PO (16:45)
[2025-05-23] MEDS ORDERED: TAMS-54 PO (16:45)
[2025-05-23] MEDS ORDERED: OXYB-52 PO (16:45)
[2025-05-23 20:00] VITALS: BP 105/67; PULSE 66; RESP 20; TEMP 36.4; O2SAT 98
[2025-05-24 08:00] VITALS: BP 115/89; PULSE 93; RESP 19; TEMP 36.2; O2SAT 99
[2025-05-24] MEDS: ERGOCALCIFEROL 50000UNITS CAPSULE PO SCH (09:20)
[2025-05-24] MEDS: ACETAMINOPHEN 325MG TABLET PO PRN (09:21)
[2025-05-24 20:00] VITALS: BP 113/71; PULSE 71; RESP 19; TEMP 36.3; O2SAT 95
[2025-05-25 01:01] LABS: CREATININE 0.9 mg/dL (0.6-1.3)
[2025-05-25 01:02] LABS: UREA NITROGEN BLOOD 12 mg/dL (9-23)
[2025-05-25 08:00] VITALS: BP 114/70; PULSE 76; RESP 18; TEMP 36.3; O2SAT 97
[2025-05-25 14:41] VITALS: BP 96/65; PULSE 68
[2025-05-25 14:44] VITALS: BP 101/67; PULSE 66
[2025-05-25 20:00] VITALS: BP 105/76; PULSE 68; RESP 18; TEMP 36.5; O2SAT 96
[2025-05-26 08:00] VITALS: BP 108/72; PULSE 66; RESP 18; TEMP 36.7; O2SAT 97
[2025-05-26 11:10] LABS: CREATININE 0.9 mg/dL (0.6-1.3); UREA NITROGEN BLOOD 11 mg/dL (9-23)
[2025-05-26 20:00] VITALS: BP 97/63; PULSE 67; RESP 18; TEMP 36.5; O2SAT 96
[2025-05-27 08:00] VITALS: BP 110/76; PULSE 79; RESP 18; TEMP 36.6; O2SAT 99
[2025-05-27 14:45] VITALS: BP 109/63; PULSE 69; RESP 16; TEMP 97.8
== END 2025-05-27 15:25 | disposition home health service (06) | DRG 91 ==
PROVIDERS: ADMIT Physical Medicine & Rehabilitation Spinal Cord Injury Medicine; ATTEND Hospitalist
DX: G72.81 Critical illness myopathy (principal); J96.01 Acute respiratory failure with hypoxia; I16.1 Hypertensive emergency; M62.82 Rhabdomyolysis; E72.20 Disorder of urea cycle metabolism, unspecified; E87.20 Acidosis, unspecified; F01.53 Vascular dementia, unspecified severity, with mood disturbance; I47.20 Ventricular tachycardia, unspecified; I69.354 Hemiplegia and hemiparesis following cerebral infarction affecting left non-dominant side; J98.11 Atelectasis; G40.901 Epilepsy, unspecified, not intractable, with status epilepticus; F80.9 Developmental disorder of speech and language, unspecified; I11.0 Hypertensive heart disease with heart failure; D63.8 Anemia in other chronic diseases classified elsewhere; E11.40 Type 2 diabetes mellitus with diabetic neuropathy, unspecified; E11.65 Type 2 diabetes mellitus with hyperglycemia; E55.9 Vitamin D deficiency, unspecified; E87.6 Hypokalemia; I48.0 Paroxysmal atrial fibrillation; I50.9 Heart failure, unspecified; I68.0 Cerebral amyloid angiopathy; K59.00 Constipation, unspecified; R04.0 Epistaxis; R53.81 Other malaise; Z51.89 Encounter for other specified aftercare; Z79.01 Long term (current) use of anticoagulants; Z79.82 Long term (current) use of aspirin; Z79.899 Other long term (current) drug therapy; Z86.79 Personal history of other diseases of the circulatory system; Z87.891 Personal history of nicotine dependence; Z91.81 History of falling
CPT/HCPCS: 36415; 80048; 80053; 81003; 82140; 82306; 82550; 82607; 82728; 82746; 82962; 83036; 83540; 83550; 83735; 84100; 84134; 84443; 85018; 85025; 92523; 92610; 93005; 97110; 97112; 97116; 97162; 97166; 97530; 97535; 97542; A4606; J1650; J2470